=== PATIENT | female | born 1970 | race Caucasian/White ===

== ENCOUNTER 2024-11-13 06:54 | Day surgery (SDC) | payer OTHER ==
[~2024-11-13] VITALS: Ht 157.5 cm; Wt 70.9 kg
[~2024-11-13 06:54] MED LIST: VITA100093 PO
[2024-11-13] MEDS ORDERED: propofoL 200 MG/20 ML VIAL As Ordered ONE (07:02)
[2024-11-13] MEDS ORDERED: GLYCOPYRROLATE INJ 0.2 MG/ML 2 ML VIAL As Ordered ONE (07:02)
[2024-11-13] MEDS ORDERED: LIDOCAINE 2% 100MG/5ML SDV (FOR ANES.) As Ordered ONE (07:02)
[2024-11-13 08:10] VITALS: BP 107/62; TEMP 96.4; O2SAT 98
== END 2024-11-13 08:25 | disposition home or self-care (01) ==
LOC: M OPP 06:54
PROVIDERS: ATTEND Internal Medicine Gastroenterology
DX: Z12.11 Encounter for screening for malignant neoplasm of colon (principal); K57.30 Diverticulosis of large intestine without perforation or abscess without bleeding; K64.8 Other hemorrhoids; Z79.899 Other long term (current) drug therapy
CPT/HCPCS: 45378; J1596